=== PATIENT | male | born 1970 | race African-American/Black ===

== ENCOUNTER 2020-12-31 11:22 | Outpatient (REF) | payer OTHER, SELFPAY ==
--- NOTE | ~2020-12-31 | XR_ITS ---
EXAMINATION: XR FOOT, RIGHT XR FOOT, LEFT CLINICAL INFORMATION: Bilateral foot pain. COMPARISON: None. TECHNIQUE: AP, oblique, and lateral views of the right and left foot. FINDINGS: Right Foot: No acute fracture or dislocation. No joint space narrowing or marginal osteophytes. No osseous erosion. No abnormal soft tissue calcification. Left Foot: No acute fracture or dislocation. No joint space narrowing or marginal osteophytes. No osseous erosion. No abnormal soft tissue calcification. XR/XR foot RT min 3V IMPRESSION: RIGHT FOOT: Unremarkable examination. LEFT FOOT: Unremarkable examination.
--- NOTE | ~2020-12-31 | XR_ITS ---
EXAMINATION: XR FOOT, RIGHT XR FOOT, LEFT CLINICAL INFORMATION: Bilateral foot pain. COMPARISON: None. TECHNIQUE: AP, oblique, and lateral views of the right and left foot. FINDINGS: Right Foot: No acute fracture or dislocation. No joint space narrowing or marginal osteophytes. No osseous erosion. No abnormal soft tissue calcification. Left Foot: No acute fracture or dislocation. No joint space narrowing or marginal osteophytes. No osseous erosion. No abnormal soft tissue calcification. XR/XR foot LT min 3V IMPRESSION: RIGHT FOOT: Unremarkable examination. LEFT FOOT: Unremarkable examination.
== END 2020-12-31 11:23 | disposition home or self-care (01) ==
LOC: HO.XRAY 11:22
PROVIDERS: PCP Internal Medicine; Visit Provider Internal Medicine
DX: M79.671 Pain in right foot (principal); M79.672 Pain in left foot
CPT/HCPCS: 73630

== ENCOUNTER 2021-04-29 12:27 | Day surgery (SDC) | payer OTHER, SELFPAY ==
[2021-04-23 13:54] VITALS: BMI 26.2
--- NOTE | 2021-04-26 08:48 | P.CONAN_ITS ---
Documented by User: Candida Lozano NP 04/26/21 08:48 HPI - Anesthesia Eval Consult details Narrative: 50yo M for Colonoscopy FORMERLY [facility], [facility] Past Medical History Medical History Arthritis COVID-19 vaccine series completed Surgical History Surgical History No pertinent past surgical history Social History Social History (Updated 04/29/21 @ 14:01 by Iveth Restrepo MD) Patient Tobacco Use Status: Never used Tobacco Use of substances other than those prescribed or required for medical reasons: No Substance Use Type: Marijuana Substance Use Frequency: Occasionally Have you been hit, kicked, punched, or otherwise hurt by someone within the past year? If so, by whom?: No Are you DNR?: No Advance Directives Information Provided: Yes (informational brochure mailed) Advance Directives on File: No Recently lost weight without trying: No Eating poorly because of decreased appetite: No Nutrition Risks: No Nutritional Risk Meds Allergies Allergy/AdvReac Type Severity Reaction Status Date / Time No Known Allergies Allergy Verified 04/23/21 13:38 Home Medications Medication Instructions Recorded Confirmed Last Taken Type acetaminophen 500 mg tablet 1,000 mg PO Q6H PRN 04/23/21 04/23/21 Unknown History Exam Exam Date and Time: April 26, 2021 0848 Height,Weight and Vital Signs: Height 6 ft 2 in Weight 92.533 kg Assessment and Plan Assessment Anesthesia Assessment: Chart Reviewed Documented by User: Iveth Restrepo MD 04/29/21 14:02 FORMERLY [facility], [facility] Past Medical History Medical History Arthritis COVID-19 vaccine series completed Family History Family history of problems with anesthesia: No Surgical History Surgical History No pertinent past surgical history History of Problems with Anesthesia: No Social History Social History (Updated 04/29/21 @ 14:01 by Iveth Restrepo MD) Patient Tobacco Use Status: Never used Tobacco Use of substances other than those prescribed or required for medical reasons: No Substance Use Type: Marijuana Substance Use Frequency: Occasionally Have you been hit, kicked, punched, or otherwise hurt by someone within the past year? If so, by whom?: No Are you DNR?: No Advance Directives Information Provided: Yes (informational brochure mailed) Advance Directives on File: No Recently lost weight without trying: No Eating poorly because of decreased appetite: No Nutrition Risks: No Nutritional Risk Meds Allergies Allergy/AdvReac Type Severity Reaction Status Date / Time No Known Allergies Allergy Verified 04/23/21 13:38 Home Medications Medication Instructions Recorded Confirmed Last Taken Type acetaminophen 500 mg tablet 1,000 mg PO Q6H PRN 04/23/21 04/23/21 Unknown History Exam Height,Weight and Vital Signs: Height 6 ft 2 in Weight 92.533 kg Vital Signs Temp Pulse Resp BP Pulse Ox 04/29/21 13:04 98.7 F 84 16 133/85 98 Airway Mallampati Class: II (Overlapping teeth) TM Dist: >3cm Neck ROM: Full Loose/Missing/Broken Teeth: Yes (Some missing) Heart: RRR Lungs: CTAB Assessment and Plan Assessment Anesthesia Assessment: Anesthesia Plan Discussed Final Anesthetic Review Family History of Problems with Anesthesia: No History of Problems with Anesthesia: No NPO: No (Cup of clear broth and glass of water about 10am) ASA Class: II Final Preanesthetic Review: No Changes in Pt Med Stat, Meds/Allgs Chart Reviewed, Consent Obtained/Reviewed and Anes Risks/Benef Reviewed Patient Risk: Intermediate Procedure Risk: Low Assessment/Block/Sedation in SS: Assess/Block/Sedation-SS Anesthetic Plan Anesthetic Plan: MAC: Disposition: Standard PACU
[2021-04-29 13:04] VITALS: BP 133/85; PULSE 84; RESP 16; TEMP 37.1; O2SAT 98
[2021-04-29] MEDS: Lactated Ringers 1,000 ML 100 ML IVCONT (13:11)
--- NOTE | 2021-04-29 13:31 | PC.NURSE ---
md coffey aware of patient drinking water and broth up to ten am today.
[2021-04-29] MEDS: Metoclopramide HCl 10 MG/2 ML VIAL IVPUSH (13:42)
[2021-04-29 14:49] VITALS: BP 90/42; PULSE 86; RESP 16; TEMP 36.2; O2SAT 99
--- NOTE | 2021-04-29 14:51 | P.BOP_ITS ---
Brief Operative Note Date of Service: 04/29/21 Pre-op diagnosis: Screening Post-op diagnosis: other (Colon polyp) Procedure: Colonoscopy to the cecum with cold snare polypectomy and placement of 2 Resolution clips Surgeon: Mason Vasquez Anesthesia: MAC Was an [employer] Compliance Officer used for this Procedure?: No Estimated blood loss (mL): 3.0 Pathology: other (A. Cecal polyp) Condition: stable Disposition: PACU
[2021-04-29 15:04] VITALS: BP 98/51; PULSE 75; RESP 18; O2SAT 99
[2021-04-29 15:19] VITALS: BP 101/55; PULSE 68; RESP 18; O2SAT 99
[2021-04-29 15:34] VITALS: BP 119/74; PULSE 77; RESP 18; O2SAT 100
[2021-04-29 15:56] VITALS: TEMP 36.8; O2SAT 99
--- NOTE | 2021-04-29 22:44 | OP_ITS ---
SURGEON: Mason Vasquez MD PREOPERATIVE DIAGNOSIS: Colorectal cancer screening. POSTOPERATIVE DIAGNOSIS: PROCEDURE PERFORMED: Colonoscopy to the cecum with cold snare polypectomy and placement of 2 Resolution clips. Full consent has been obtained from him for this, including risks of bleeding and perforation. ESTIMATED BLOOD LOSS: COMPLICATIONS: ANESTHESIA: Medication used, monitored anesthesia care. ASSISTANTS: SPECIMENS: POSTOPERATIVE DIAGNOSES: Colorectal cancer screening, colon polyp, internal hemorrhoids. DESCRIPTION OF PROCEDURE: The patient was placed in the left lateral decubitus position. The digital rectal exam revealed no abnormalities. The Olympus video pediatric colonoscope was entered into the rectum and advanced easily to the cecum. Once in the cecum, I did identify normal-appearing cecal pouch with appendiceal orifice and a normal-appearing ileocecal valve. There was transillumination of light deep in the right lower quadrant. There was some residual prep and thick liquid stool in the cecum and surrounding area, which was all copiously irrigated and suctioned away leaving a good visualization. In the cecum, was an approximately 6 mm grossly adenomatous polyp, which was removed with a cold snare polypectomy and recovered by suction. There was some persistent oozing and 2 clips were applied with good hemostasis and good deployment. The remainder of the cecum appeared normal. The scope was then slowly withdrawn assessing all mucosal surfaces carefully. Preparation was otherwise excellent. I did not visualize any other polyps, colitis, nor angiodysplasia. In the rectum, scope was retroflexed visualizing small internal hemorrhoids, but no other pathology. The rectal mucosa appeared normal. Scope was straightened and withdrawn from the patient. He tolerated the procedure well and was returned to the recovery area in stable condition. IMPRESSION: 1. Colon polyp, status post cold snare polypectomy and placement of 2 Resolution clips. 2. Internal hemorrhoids. PLAN: The results of the pathology will be checked. If this is a tubular adenoma, I would recommend a followup colonoscopy in 5 years. Even if it is not a tubular adenoma, I would still recommend a repeat colonoscopy in 5 years given the somewhat limited prep in the region of the cecum. He was advised not to use any aspirin and NSAIDs for 1 week. This has been discussed with his . MD DALE Kay/RHONDA / [id number]
== END 2021-04-29 16:05 | disposition home or self-care (01) ==
PROVIDERS: PCP Internal Medicine; Visit Provider Internal Medicine
PROC: 0DJD8ZZ Inspection of Lower Intestinal Tract, Via Natural or Artificial Opening Endoscopic (ICD-10-PCS; CPT 45378; principal; 2021-04-29 13:10)
DX: Z12.11 Encounter for screening for malignant neoplasm of colon (principal); K63.5 Polyp of colon; K64.8 Other hemorrhoids
CPT/HCPCS: 45385; 88305; J2765